=== PATIENT | male | born 1970 | race Caucasian/White ===

== ENCOUNTER 2020-06-27 13:47 | Emergency (ER) | payer BC ==
[2020-06-27] MEDS ORDERED: Aspirin 81 MG Tab.Chew PO ONE (13:51)
[2020-06-27] MEDS ORDERED: Ticagrelor 90 MG Tab PO ONE (13:52)
[2020-06-27] MEDS ORDERED: Nitroglycerin 0.4 MG Tab.SL SL ONE ×2 (13:53→14:36)
[2020-06-27 14:19] LABS: PTT,PARTIAL THROMBOPLSTIN TIME 23.2 SEC (24.5-32.8)
--- NOTE | 2020-06-27 14:26 | EDM.PDOC ---
ED HPI GENERAL MEDICAL PROBLEM - General Chief Complaint: General Stated Complaint: CP Time Seen by Provider: 06/27/20 13:51 Source of Information: Reports: Patient History Limitations: Reports: No Limitations - History of Present Illness INITIAL COMMENTS - FREE TEXT/NARRATIVE: Patient reports chest tightness sensation in epigastric area and just left of epigastric center. Present last evening. Was gone for awhile this morning but returned later while at work ([employer]). No nausea/emesis with it. [place] sweaty last night. Hx of similar pain a few years ago which led to overnight stay at [facility]. Recalls one other episode around 5-6 years ago. Has history of GERD which really does not bother him since he quit smoking. No PPIs needed now. Minimal ETOH use. No actual pain complaint. O2 via [place] by EMS helped with tightness. No actual SOB complaint. Denies recent illness/sick contacts. No fevers. HEENT negative for MATTHEWS/sore throat/URI complaints. Resp negative for cough/wheeze/sputum CV negative for palpitations/syncope/dizziness GI negative for nausea/emesis/bowel changes/abdominal pain Gu negative for changes in urination/UTI complaints. MS negative for acute changes. Denies focal neuro changes. Good appetite/pasta for lunch. No family history of CAD/ID No personal history of CAD/ID No stress testing performed after last episode. Left Chest Pain Score (Numeric/FACES): 5 - Related Data Allergies Allergy/AdvReac Type Severity Reaction Status Date / Time [id number] Reductase Allergy Leg Cramps Verified 06/27/20 14:06 Inhibitor Home Meds: Home Meds Ezetimibe [Zetia] 10 mg PO DAILY 06/27/20 [History] Fenofibrate 160 mg PO DAILY 06/27/20 [History] Losartan Potassium 100 mg PO DAILY 06/27/20 [History] Magnesium Glycinate [Magnesium Bisglycinate Chelate] 500 gm MC DAILY #1 powder 06/27/20 [Rx] Multivit with Calcium,Iron,Min [Essential Daily] 1 each PO DAILY 06/27/20 [History] amLODIPine Besylate [Amlodipine Besylate] 10 mg PO DAILY 06/27/20 [History] hydroCHLOROthiazide [Hydrochlorothiazide] 25 mg PO DAILY 06/27/20 [History] metFORMIN HCl [Metformin HCl] 500 mg PO QID 06/27/20 [History] Past Medical History Cardiovascular History: Reports: High Cholesterol, Hypertension Endocrine/Metabolic History: Reports: Diabetes, Type II, Obesity/BMI 30+ Social & Family History - Tobacco Use Smoking Status *Q: Former Smoker - Alcohol Use Alcohol Use History: Yes Alcohol Use Frequency: Rarely - Recreational Drug Use Recreational Drug Use: No Drug Use in Last 12 Months: No ED ROS GENERAL - Review of Systems Review Of Systems: Comprehensive ROS is negative, except as noted in HPI. Respiratory: Reports: Pleuritic Chest Pain ED EXAM, GENERAL - Physical Exam Exam: See Below Exam Limited By: No Limitations General Appearance: Alert, No Apparent Distress, Obese Eye Exam: Bilateral Eye: EOMI, PERRL Ears: Normal External Exam, Normal Canal, Hearing Grossly Normal Nose: No: Nasal Deformity, Nasal Swelling, Nasal Drainage Throat/Mouth: Normal Inspection, Normal Lips, Normal Voice, No Airway Compromise Head: Atraumatic, Normocephalic Neck: Normal Inspection, Supple, Non-Tender, Full Range of Motion. No: Carotid Bruit, Lymphadenopathy (L), Lymphadenopathy (R) Respiratory/Chest: No Respiratory Distress, Lungs Clear, Normal Breath Sounds, No Accessory Muscle Use, Chest Non-Tender Cardiovascular: No Edema, No Murmur, Tachycardia GI/Abdominal: Normal Bowel Sounds, Soft, Non-Tender, No Distention, Other (palpation of epigastrum/chest did not cause discomfort. ) (Male) Exam: Deferred Rectal (Males) Exam: Deferred Back Exam: No: CVA Tenderness (L), CVA Tenderness (R), Muscle Spasm, Paraspinal Tenderness, Vertebral Tenderness Extremities: Normal Inspection, Normal Range of Motion, Non-Tender, No Pedal Edema, Normal Capillary Refill Neurological: Alert, Oriented, Normal Cognition, Normal Gait, No Motor/Sensory Deficits Psychiatric: Normal Affect, Normal Mood Skin Exam: Warm, Dry, Intact, Normal Color EKG INTERPRETATION EKG Date: 06/27/20 Time: 13:38 Rhythm: Other (Sinus tach) Rate (Beats/Min): 110 [place]: Normal P-Wave: Present QRS: Other (nonspecific intraventricular block) ST-T: Other (abnormal Ts/depressed II/AVF/V6) Course - Vital Signs Last Recorded V/S: Last Vital Signs Temp 36.8 C 06/27/20 13:50 Pulse 101 H 06/27/20 16:10 Resp 20 06/27/20 16:10 BP 120/85 06/27/20 16:10 Pulse Ox 97 06/27/20 16:10 - Orders/Labs/Meds Orders: Active Orders 24 hr Category Date Time Status Chest 2V [CR] Stat Exams 06/27/20 13:52 Taken Labs: Laboratory Tests 06/27/20 06/27/20 06/27/20 Range/Units 13:49 13:49 13:49 WBC 8.0 (4.0-10.2) K/uL RBC 4.67 (4.33-5.41) M/uL Hgb 15.2 (13.1-16.8) g/dL Hct 43.0 (39.0-49.0) % MCV 92.1 (84.0-98.0) fL MCH 32.5 (28.2-33.3) pg MCHC 35.3 (31.7-36.0) g/dL RDW 12.1 (11.2-14.1) % Plt Count 187 (150-350) K/uL Neut % (Auto) 66.5 (45.0-80.0) % Lymph % (Auto) 20.0 (10.0-50.0) % [place] % (Auto) 11.8 (2.0-14.0) % Eos % (Auto) 1.3 (0.0-5.0) % Baso % (Auto) 0.4 (0.0-2.0) % Neut # (Auto) 5.29 (1.40-7.00) K/uL Lymph # (Auto) 1.59 (0.50-3.50) K/uL [place] # (Auto) 0.94 (0.00-1.00) K/uL Eos # (Auto) 0.10 (0.00-0.50) K/uL Baso # (Auto) 0.03 (0.00-0.20) K/uL PT 9.9 (9.5-12.0) SEC INR 1.0 APTT 23.2 L (24.5-32.8) SEC D-Dimer, Quantitative (0-400) ng/mL Sodium 139 (136-145) mmol/L Potassium 3.5 (3.5-5.1) mmol/L Chloride 100 (98-107) mmol/L Carbon Dioxide 28.2 (21.0-32.0) mmol/L BUN 31 H (7-18) mg/dL Creatinine 1.80 H (0.51-1.17) mg/dL Est Cr Clr Drug Dosing 57.08 mL/min Estimated GFR (MDRD) 40 mL/min Glucose 343 H (74-106) mg/dL Lactic Acid (0.4-2.0) mmol/L Calcium 9.9 (8.5-10.1) mg/dL Magnesium 1.6 L (1.8-2.4) mg/dL Total Bilirubin 0.7 (0.2-1.0) mg/dL AST 44 H (15-37) U/L ALT 63 (12-78) U/L Alkaline Phosphatase 57 (46-116) IU/L Creatine Kinase 145 (26-308) U/L Creatine Kinase Index 0.9 (0.0-2.5) % CK-MB (CK-2) 1.30 (0.00-3.60) ng/mL Troponin I 0.000 (0.000-0.056) ng/mL NT-Pro-B Natriuret Pep 19 (0-125) pg/mL Total Protein 7.9 (6.4-8.2) g/dL Albumin 3.8 (3.4-5.0) g/dL 06/27/20 06/27/20 Range/Units 13:49 13:49 WBC (4.0-10.2) K/uL RBC (4.33-5.41) M/uL Hgb (13.1-16.8) g/dL Hct (39.0-49.0) % MCV (84.0-98.0) fL MCH (28.2-33.3) pg MCHC (31.7-36.0) g/dL RDW (11.2-14.1) % Plt Count (150-350) K/uL Neut % (Auto) (45.0-80.0) % Lymph % (Auto) (10.0-50.0) % [place] % (Auto) (2.0-14.0) % Eos % (Auto) (0.0-5.0) % Baso % (Auto) (0.0-2.0) % Neut # (Auto) (1.40-7.00) K/uL Lymph # (Auto) (0.50-3.50) K/uL [place] # (Auto) (0.00-1.00) K/uL Eos # (Auto) (0.00-0.50) K/uL Baso # (Auto) (0.00-0.20) K/uL PT (9.5-12.0) SEC INR APTT (24.5-32.8) SEC D-Dimer, Quantitative 208 (0-400) ng/mL Sodium (136-145) mmol/L Potassium (3.5-5.1) mmol/L Chloride (98-107) mmol/L Carbon Dioxide (21.0-32.0) mmol/L BUN (7-18) mg/dL Creatinine (0.51-1.17) mg/dL Est Cr Clr Drug Dosing mL/min Estimated GFR (MDRD) mL/min Glucose (74-106) mg/dL Lactic Acid 3.4 H (0.4-2.0) mmol/L Calcium (8.5-10.1) mg/dL Magnesium (1.8-2.4) mg/dL Total Bilirubin (0.2-1.0) mg/dL AST (15-37) U/L ALT (12-78) U/L Alkaline Phosphatase (46-116) IU/L Creatine Kinase (26-308) U/L Creatine Kinase Index (0.0-2.5) % CK-MB (CK-2) (0.00-3.60) ng/mL Troponin I (0.000-0.056) ng/mL NT-Pro-B Natriuret Pep (0-125) pg/mL Total Protein (6.4-8.2) g/dL Albumin (3.4-5.0) g/dL Meds: Medications Discontinued Medications Generic Name Dose Route Start Last Admin Trade Name Freq PRN Reason Stop Dose Admin Aspirin 324 mg 06/27/20 13:51 06/27/20 14:42 Aspirin PO 06/27/20 13:52 Not Given ONETIME ONE Magnesium Sulfate/Dextrose 1 100 mls @ 100 mls/hr 06/27/20 15:04 06/27/20 15:14 gm/ Premix IV 06/27/20 16:03 100 mls/hr ONETIME ONE Administration Nitroglycerin 0.4 mg 06/27/20 13:53 06/27/20 14:17 Nitrostat SL 06/27/20 13:54 0.4 mg ONETIME ONE Administration Nitroglycerin 0.4 mg 06/27/20 14:36 06/27/20 14:41 Nitrostat SL 06/27/20 14:37 0.4 mg ONETIME ONE Administration Pantoprazole Sodium 40 mg 06/27/20 15:03 06/27/20 15:13 Protonix Iv IVPUSH 06/27/20 15:04 40 mg ONETIME ONE Administration Ticagrelor 180 mg 06/27/20 13:52 06/27/20 14:14 Brilinta PO 06/27/20 13:53 180 mg ONETIME ONE Administration - Radiology Interpretation Free Text/Narrative:: Chest xray showed mild cardiomegaly. No other acute changes noted. - Re-Assessments/Exams Free Text/Narrative Re-Assessment/Exam: 06/27/20 18:17 Patient felt better with the oxygen. Remained without any other complaint. Did receive Brilinta and Nitro. Tightness eventually resolved. Cardiac routines performed. CBC/Trop/proBNP unremarkable. EKG as above. Mild Cardiomegaly on chest xray. AST mildly elevated. Glu 343 Lactic 3.4 Mg 1.6 EKG reviewed with from [facility]. He felt changes were non- specific and patient was appropriate for local admission to follow Troponins. No evidence of infection/sepsis identified. Time spent reviewing labs and concerns with patient. Recommended that he be admitted inpatient for continued telemetry/blood glucose monitoring/Mg supplementation/recheck of lactic acid. Patient refused, citing cost. Strongly advised patient to reconsider admission/high risk factors for ID. He continue to refuse. He was agreeable with outpatient labs. Plan made to have patient return tonight at 9pm for repeat Troponin and blood glucose. Will add Hgb A1c. Will repeat Troponin/EKG/blood glucose/lactic acid in AM. Extensive precautions reviewed at time of discharge. To return to ER as needed for sudden worsening problems. Differential includes GI vs Cardiac etiology. Patient will need to have his worsening diabetes addressed. Needs to follow up with PCP this week and consider starting insulin therapy. Extensive time also spent discussing lower carb diet to address diabetes but patient appears to be in denial that he is making poor dietary choices at present. Departure - Departure Time of Disposition: 16:30 Disposition: Home, Self-Care 01 Condition: Good Clinical Impression: Hypomagnesemia, Epigastric pain, Hyperglycemia - Discharge Information *PRESCRIPTION DRUG MONITORING PROGRAM REVIEWED*: Not Applicable *COPY OF PRESCRIPTION DRUG MONITORING REPORT IN PATIENT ANY: Not Applicable Prescriptions: Magnesium Glycinate [Magnesium Bisglycinate Chelate] 500 gm MC DAILY #1 powder Instructions: Hypomagnesemia, Nonspecific Chest Pain, Adult, [id number] Referrals: PCP,None [Primary Care Provider] - Forms: ED Department Discharge Additional Instructions: Come to ER to get your Troponin rechecked at 9pm tonight, and again at 9am tomorrow morning. If it is elevated we will need to refer you to [facility]. Recommend that you follow up with your primary provider and arrange a stress test if the troponins are within normal range. That does not mean you do not have heart disease. Start Magnesium daily. You have low Magnesium levels. Return to ER if you have sudden worsening problems/pain/shortness of breath. Take honest look at your lifestyle. Honest. You need to get rid of processed foods/high carb foods. It is mostly a diet problem. Not an exercise problem. You have an enlarged heart, sick kidneys, and your elevated liver tests are likely from fatty liver. If you do not make a change this will get worse. Medication will not save you. A list of some resources will be given that you can refer to. Follow up with your primary provider for ongoing care. Sepsis Event Note (ED) - Focused Exam Vital Signs: Vital Signs Temp Pulse Resp BP BP Pulse Ox 06/27/20 16:10 101 H 20 120/85 97 06/27/20 16:00 103 H 19 113/79 97 06/27/20 15:38 105 H 20 102/86 95 06/27/20 15:21 106 H 20 101/84 98 06/27/20 14:50 114 H 18 106/57 L 97 06/27/20 14:45 109 H 18 84/61 L 99 06/27/20 14:41 135/92 H 06/27/20 14:30 113 H 17 111/60 98 06/27/20 14:17 135/92 H 06/27/20 13:50 36.8 C 108 H 20 138/94 H 95 - My Orders Last 24 Hours: My Active Orders 06/27/20 13:52 Chest 2V [CR] Stat - Assessment/Plan Last 24 Hours: My Active Orders 06/27/20 13:52 Chest 2V [CR] Stat
[2020-06-27] MEDS ORDERED: Pantoprazole 40 MG Vial IVPUSH ONE (15:03)
== END 2020-06-27 16:35 | disposition home or self-care (01) ==
LOC: LL.ED 13:47
DX: E83.42 Hypomagnesemia (principal); R10.13 Epigastric pain; E11.65 Type 2 diabetes mellitus with hyperglycemia; I10 Essential (primary) hypertension; E66.9 Obesity, unspecified; Z88.8 Allergy status to other drugs, medicaments and biological substances; Z87.891 Personal history of nicotine dependence; Z79.84 Long term (current) use of oral hypoglycemic drugs; Z79.899 Other long term (current) drug therapy
CPT/HCPCS: 36415; 71046; 80053; 82550; 82553; 83605; 83735; 83880; 84484; 85025; 85379; 85610; 85730; 93005; 96365; 96375; 99284; A9270; C9113; J3475